=== PATIENT | male | born 1945 | race Caucasian/White ===

== ENCOUNTER 2021-06-10 11:41 | Observation (INO) ==
[2021-06-10] MEDS ORDERED: *HR* Propofol 200 MG/20 ML VIAL IVP ONE (12:08)
[2021-06-10] MEDS ORDERED: *HR* FentaNYL (PF) 100 MCG/2 ML VIAL ONE (12:08)
[2021-06-10] MEDS ORDERED: Lidocaine -MPF 2% 5 ML VIAL ONE (12:08)
[2021-06-10] MEDS ORDERED: *HR* Rocuronium Bromide 50 MG/5 ML VIAL ONE (12:08)
[2021-06-10] MEDS ORDERED: D5% in Water 250 ML ONE (12:33)
[2021-06-10] MEDS ORDERED: Famotidine 20 MG/2 ML VIAL IVP ONE (12:45)
[2021-06-10] MEDS ORDERED: Pregabalin 75 MG CAPSULE PO ONE (12:45)
[2021-06-10] MEDS ORDERED: *HR* FentaNYL (PF) 100 MCG/2 ML VIAL IVP PRN (12:45)
[2021-06-10] MEDS ORDERED: Acetaminophen IV 1,000 MG/100 ML BAG IVPB ONE (12:45)
[2021-06-10] MEDS ORDERED: CeFAZolin Syr 2,000MG/20 ML 2,000 MG/20 ML SYRINGE IVPB ONE (12:47)
[2021-06-10] MEDS ORDERED: Albuterol 2.5 MG/3 ML NEBULIZER IH PRN (12:47)
[2021-06-10] MEDS ORDERED: D5% in Lactated Ringers 1,000 ML IVC SCH (13:00)
[2021-06-10] MEDS ORDERED: Vancomycin 1,000 MG VIAL ONE (13:24)
[2021-06-10] MEDS ORDERED: dexmedeTOMIDine in 0.9 % NaCL 80 MCG/20 ML MLS ONE (13:28)
[2021-06-10] MEDS ORDERED: Polymyxin B Sulfate 500,000 UNIT, Sodium Chloride IRRigation 1,000 ML IR ONE (13:45)
[2021-06-10] MEDS ORDERED: Sugammadex Sodium 200 MG/2 ML VIAL IV ONE (14:56)
[2021-06-10] MEDS ORDERED: *HR* HYDROMORPHONE 2 MG/ML VIAL ONE (15:07)
[2021-06-10] MEDS: *HR* HYDROmorphone PF 0.5 MG/0.5 ML SYRINGE IVP PRN ×2 (15:38→15:43)
[2021-06-10] MEDS ORDERED: *HR* Midazolam HCl 2 MG/2 ML VIAL IVP ONE (15:48)
[2021-06-10] MEDS ORDERED: *HR* Midazolam HCl 2 MG/2 ML VIAL ONE (15:50)
[2021-06-10] MEDS ORDERED: Acetaminophen 325 MG TABLET PO PRN (16:39)
[2021-06-10] MEDS ORDERED: Naloxone 0.4 MG/ML INJ IVP PRN (16:39)
[2021-06-10] MEDS ORDERED: Ondansetron 4 MG/2 ML VIAL IVP PRN (16:39)
[2021-06-10] MEDS ORDERED: Ringers Solution, Lactated 1,000 ML IVC SCH (16:39)
[2021-06-10] MEDS: CeFAZolin 2 GM/120 ML BAG IVPB SCH (21:31)
[2021-06-10] MEDS: *HR* OxyCODONE Immed Rel 5 MG TABLET PO PRN (23:13)
[2021-06-11] MEDS: *HR* HYDROcodone/Acet 5/325 mg TABLET PO PRN ×2 (02:26→12:34)
[2021-06-11] MEDS: CeFAZolin 2 GM/120 ML BAG IVPB SCH (05:03)
[2021-06-11] MEDS: *HR* OxyCODONE Immed Rel 5 MG TABLET PO PRN ×3 (08:52→20:12)
[2021-06-11] MEDS: tiZANidine 4 MG TABLET PO PRN (09:20)
[2021-06-11] MEDS ORDERED: D5% in Water 1,000 ML IVC PRN (11:43)
[2021-06-11] MEDS ORDERED: *HR* Dextrose 50 % in Water (Syg) 50 ML SYRINGE IVP PRN (11:43)
[2021-06-11] MEDS ORDERED: Dextrose Gel 15 GM/37.5 ML TUBE PO PRN ×2 (11:43)
[2021-06-11] MEDS: Insulin LISPRO 300 UNITS/3 ML VIAL SUBQ SCH ×2 (12:29→15:59)
[2021-06-11] MEDS ORDERED: amLODIPine 5 MG TABLET PO ONE (12:46)
[2021-06-11] MEDS: *HR* Metformin 500 MG TABLET PO SCH (15:57)
[2021-06-11] MEDS ORDERED: Insulin LISPRO 300 UNITS/3 ML VIAL SUBQ SCH (21:00)
[2021-06-12] MEDS: *HR* OxyCODONE Immed Rel 5 MG TABLET PO PRN ×3 (00:27→13:57)
[2021-06-12] MEDS: *HR* Metformin 500 MG TABLET PO SCH (08:31)
[2021-06-12] MEDS: Insulin LISPRO 300 UNITS/3 ML VIAL SUBQ SCH ×2 (08:31→12:19)
[2021-06-12] MEDS: tiZANidine 4 MG TABLET PO PRN (08:35)
[2021-06-12] MEDS ORDERED: *HR* Glimepiride 4 MG TABLET PO SCH (09:00)
[2021-06-12] MEDS ORDERED: lisinopriL 20 MG TABLET PO SCH (09:00)
[2021-06-12] MEDS ORDERED: amLODIPine 5 MG TABLET PO SCH (09:00)
[2021-06-12] MEDS ORDERED: *HR* Pioglitazone 15 MG TABLET PO SCH (09:00)
[2021-06-12 11:11] LABS: Influenza A PCR Negative (Negative); Influenza B PCR Negative (Negative); Resp. Syncytial Virus PCR Negative (Negative)
[2021-06-12 11:12] LABS: SARS-CoV-2 by PCR (In House) Negative (Negative)
[2021-06-12 12:04] VITALS: BP 124/66; PULSE 75; TEMP 98.3; O2SAT 93
== END 2021-06-12 15:02 ==
LOC: SDCAOSI 11:41 → 4WAOSI 11:41
PROVIDERS: ADMIT Orthopaedic Surgery Orthopaedic Surgery of the Spine; ATTEND Orthopaedic Surgery Orthopaedic Surgery of the Spine